=== PATIENT | male | born 1985 ===

== ENCOUNTER 2024-06-20 21:07 | Emergency (ER) | payer MEDICAID ==
[2024-06-20 21:59] LABS: BASOPHILS PERCENT AUTO 0.4 % (0.0-1.0); EOSINOPHILS ABSOLUTE AUTO 0.1 K/mm3 (0.0-0.4); EOSINOPHILS PERCENT AUTO 0.7 % (0.0-6.0); HEMATOCRIT 46.9 % (42.0-52.0); HEMOGLOBIN 15.6 gm/dl (14.0-18.0); IMMATURE GRAN ABSOLUTE AUTO 0.03 K/mm3 (0.00-0.05); IMMATURE GRAN PERCENT AUTO 0.3 % (0.0-0.4); LYMPHOCYTES ABSOLUTE AUTO 2.7 K/mm3 (1.0-4.8); LYMPHOCYTES PERCENT AUTO 28.3 % (24.0-44.0); MEAN CORPUSCULAR HEMOGLOBIN 29.3 pg (28.0-32.0); MEAN CORPUSCULAR HGB CONC 33.3 g/dl (32.0-36.0); MEAN PLATELET VOLUME 8.9 fl (9.4-12.4); MONOCYTES ABSOLUTE AUTO 0.9 K/mm3 (0.0-0.8); MONOCYTES PERCENT AUTO 9.3 % (0.0-8.0); NEUTROPHILS ABSOLUTE AUTO 5.7 K/mm3 (1.8-7.7); PLATELET COUNT,PLT 253 K/mm3 (150-400); RED BLOOD CELL COUNT 5.33 M/mm3 (4.52-5.90); WHITE BLOOD CELL COUNT,WBC 9.37 K/mm3 (3.9-11.3)
[2024-06-20 22:21] LABS: A/G RATIO 1.2 (1-2); ANION GAP 13.8 (5-15); BILIRUBIN TOTAL 0.4 mg/dL (0.2-1.0); EST CRCL DRUG DOSING (CG) 97.79 mL/min; POTASSIUM,K 3.8 mEq/L (3.5-5.1); PROTEIN TOTAL,TP 7.3 g/dl (6.4-8.2)
[2024-06-20] MEDS: Sodium Chloride 0.9% 1,000 ML IV ONE (22:24)
[2024-06-20] MEDS: Alum Hydrox/Mag Hydrox/Simeth 30 ML, Lidocaine 2% 15 ML PO ONE (22:25)
[2024-06-20] MEDS: Sodium Chloride 0.9% 10 ML Syringe FLUSH PRN (22:25)
[2024-06-20] MEDS: Famotidine 20 MG Tab PO ONE (22:25)
[2024-06-20 22:42] LABS: APPEARANCE,URINE CLEAR (Clear); BILIRUBIN,URINE NEGATIVE (Negative); COLOR,URINE YELLOW (Yellow); GLUCOSE,URINE NEGATIVE (Negative); KETONES,URINE NEGATIVE (Negative); LEUKOCYTE ESTERASE,URINE NEGATIVE (Negative); NITRITE,URINE NEGATIVE (Negative); OCCULT BLOOD,URINE NEGATIVE (Negative); PROTEIN,URINE NEGATIVE (Negative)
[2024-06-20] MEDS: Sodium Chloride 0.9% 10 ML Syringe FLUSH ONE (22:43)
[2024-06-20] MEDS: Iopamidol 612 MG/ML 100 ML Bottle IVPUSH ONE (22:43)
== END 2024-06-21 00:35 | disposition home or self-care (01) ==
LOC: JD.ED 21:07
DX: R10.9 Unspecified abdominal pain (principal); R10.811 Right upper quadrant abdominal tenderness
CPT/HCPCS: 36415; 74177; 80053; 81003; 83690; 83735; 85025; 96360; 99284; A9270; J3490; J7030; Q9967